=== PATIENT | female | born 1985 | race Caucasian/White ===

== ENCOUNTER → 2023-10-26 13:26 | Outpatient (REF) | payer OTHER, SELFPAY | LOC: PNTC 13:26 | PROVIDERS: ATTENDING PHYSICIAN Obstetrics & Gynecology | DX: O09.529 Supervision of elderly multigravida, unspecified trimester (principal); O45.93 Premature separation of placenta, unspecified, third trimester | CPT/HCPCS: 76815; 76817 ==

== ENCOUNTER → 2023-11-14 10:58 | Outpatient (REF) | payer OTHER, SELFPAY | LOC: PNTC 10:58 | PROVIDERS: ATTENDING PHYSICIAN Obstetrics & Gynecology | DX: O34.40 Maternal care for other abnormalities of cervix, unspecified trimester (principal); Z87.59 Personal history of other complications of pregnancy, childbirth and the puerperium | CPT/HCPCS: 76816 ==

== ENCOUNTER 2023-12-26 15:18 | Inpatient (IN) | payer OTHER, SELFPAY ==
[2023-12-26 15:38] VITALS: BP 172/101; BMI 23.5
[2023-12-26] MEDS: TRANDATE 20 MG IV (15:52)
[2023-12-26] MEDS: MAGNESIUM SULFATE 100 IV (15:54)
[2023-12-26 15:56] LABS: % Basophils 0.7 % (0-2); % Eosinophils 0.4 % (0-6); % Immature Granulocytes 0.4 % (0-0.5); % Lymphocytes 32.5 % (20.5-51.1); Absolute Basophils 0.1 10^3/uL (0-0.2); Absolute Lymphocytes 3.1 10^3/uL (1.2-3.4); Absolute Monocytes 0.7 10^3/uL (0.1-0.6); Absolute Neutrophils 5.6 10^3/uL (1.4-6.5); Hematocrit 42.1 % (37.0-47.0); Hemoglobin 15.5 g/dL (12.0-16.0); Mean Corp Hgb Conc. 36.8 g/dL (33.0-37.0); Mean Corpuscular Volume 89.8 fL (81.0-99.0); Mean Platelet Volume 12.7 fL (7.4-10.4); Nucleated Red Blood Cells % 0 %; Platelet Count 204 10^3/uL (130-400); Red Blood Cell Count 4.69 10^6/uL (4.20-5.40); Red Cell Dist. Width 12.4 % (11.5-14.5); White Blood Cell Count 9.5 10^3/uL (4.8-10.8)
[2023-12-26 16:04] LABS: Urine Albumin 3+ (Neg - Trace); Urine Bilirubin Negative (Negative); Urine Character Clear (Clear); Urine Color Yellow; Urine Glucose Negative (Negative); Urine Ketone Trace (Negative); Urine Leukocyte Trace (Negative); Urine Nitrite Negative (Negative); Urine Occult Blood 3+ (Negative); Urine Urobilinogen Negative (Neg - 1+); Urine pH 6.5 (5.0-9.0)
[2023-12-26 16:08] LABS: ALT (SGPT) 15 U/L (0-35); AST (SGOT) 23 U/L (14-36); Albumin 3.1 g/dl (3.5-5.0); Alkaline Phosphatase 414 U/L (38-126); Blood Urea Nitrogen 12 mg/dl (7-17); Calcium 9.3 mg/dl (8.4-10.2); Carbon Dioxide 22 mmol/L (22-30); Chloride 107 mmol/L (98-107); Estimated Creatinine Clearance 87 ml/min; Glucose 89 mg/dl (70-99); Sodium 131 mmol/L (135-145); Total Bilirubin 0.3 mg/dl (0.2-1.3); Total Protein 5.7 g/dl (6.3-8.2); eGFR > 60.00
[2023-12-26] MEDS: TRANDATE 40 MG IV (16:18)
[2023-12-26] MEDS: MAGNESIUM SULFATE 40 GRAM 1000 IV (16:23)
[2023-12-26] MEDS: TRANDATE 80 MG IV (16:44)
[2023-12-26] MEDS: BICITRA 30 ML PO (16:47)
[2023-12-26] MEDS: TYLENOL 1000 MG PO (16:47)
[2023-12-26] MEDS: LR 1000 IV ×2 (16:48→23:17)
--- NOTE | 2023-12-26 16:53 | CON.NEO ---
Consultation
-
Date/Time Consultation Requested: 12/25 1600
Date/Time Consultation Performed: 12/25 1630
Requesting Provider: dr Blue
Performing Provider: Dr knapp
Reason for Consultation: Pretrm delivery
Consultation - Neonatology
Maternal Labs
Blood Type: O Positive
Antibody Screen: Negative
RPR: Nonreactive
Rubella: Immune
Hep B S Ag: Negative
Hep C: Negative
HIV: Nonreactive
Group B Strep: Unknown
Chlamydia/GC: Negative
Consult
Points discussed at consult:
parents had 32 wk delivery 2 years back with 14 day ICN stay . This was uneventful until today when mom was checked in and noted to have 2 plus protien and elevated BP. admitted given Mag and decision made to section her
for PIH
- Management at delivery including the possibility of CPAP/intubation/surfactant discussed
- Respiratory: RDS possibility with possibility of worsening for 24-48 hrs, management including CPAP/surfactant/ventilator support may be required
- Nutrition: Hypoglycemia, need for IV fluids, gradual feed advance, Gavage feeding, importance of colostrum feeding, initiation of expression of colostrum within 3-4 hours, availability of donor milk, safety fo donor milk etc. were discussed.
- Procedures: Intubation, CPAP, IV placement, blood tests, umbilical arterial or venous lines, gavage feedings were discussed
- CVS: possibility of PDA not discussed in detail at this time
- RADIO INTERFERENCE INVESTIGATOR: Rare possibility of IVH and need for head US, grading of IVH and mcfp effects of Grade III/IV although extremely rare at >32 weeks were discussed
- Jaundice possibility and need for phototherapy discussed
- Family Centered Care: Discussed FCC with emphasis on parental participation during sign off and during management rounds and is encouraged. Availability of gonzalez eyes camera also discussed
-Mom and Dad were given the opportunity to ask questions throughout and open invitation to call if any questions come as they absorb all the information given so far.
Face to Face Time
Total [id number] Time (in Minutes): 30
Attending [facility]: Hannah Knapp MD
[facility]
[2023-12-26 16:57] LABS: Urine Red Blood Cell 21-25 /HPF (0-2); Urine Squamous Cell >30 /LPF (Few); Urine White Cell None Seen /HPF (0-5)
[2023-12-26] MEDS: ANCEF 10 IV (17:00)
[2023-12-26] MEDS: BENADRYL 25 MG IV (18:39)
[2023-12-26 20:30] LABS: % Basophils 0.2 % (0-2); % Eosinophils 0.1 % (0-6); % Immature Granulocytes 0.5 % (0-0.5); % Lymphocytes 9.9 % (20.5-51.1); % Monocytes 1.5 % (1.7-9.3); % Neutrophils 87.8 % (42.2-75.2); Absolute Immature Granulocytes 0.1 10^3/uL (0-0.05); Absolute Lymphocytes 1.7 10^3/uL (1.2-3.4); Absolute Monocytes 0.3 10^3/uL (0.1-0.6); Hematocrit 37.4 % (37.0-47.0); Hemoglobin 13.6 g/dL (12.0-16.0); Mean Corp Hgb Conc. 36.4 g/dL (33.0-37.0); Mean Corpuscular Hgb 32.6 pg (27.0-31.0); Mean Corpuscular Volume 89.7 fL (81.0-99.0); Mean Platelet Volume 12.7 fL (7.4-10.4); Nucleated Red Blood Cells % 0 %; Platelet Count 165 10^3/uL (130-400); Red Blood Cell Count 4.17 10^6/uL (4.20-5.40); Red Cell Dist. Width 12.3 % (11.5-14.5); White Blood Cell Count 17.1 10^3/uL (4.8-10.8)
[2023-12-26 20:41] LABS: Fibrinogen 376 MG/DL (199-459); INR 0.99; PT 12.8 Sec (11.4-14.6)
[2023-12-26 20:46] LABS: ALT (SGPT) 14 U/L (0-35); AST (SGOT) 23 U/L (14-36); Albumin 2.6 g/dl (3.5-5.0); Alkaline Phosphatase 405 U/L (38-126); Blood Urea Nitrogen 12 mg/dl (7-17); Calcium 8.1 mg/dl (8.4-10.2); Carbon Dioxide 21 mmol/L (22-30); Chloride 103 mmol/L (98-107); Estimated Creatinine Clearance 117 ml/min; Glucose 121 mg/dl (70-99); Magnesium 4.7 mg/dl (1.6-2.3); Sodium 129 mmol/L (135-145); Total Bilirubin 0.4 mg/dl (0.2-1.3); Total Protein 4.9 g/dl (6.3-8.2); eGFR > 60.00
[2023-12-26 22:45] LABS: Urine Protein > 2000 mg/dl
[2023-12-26] MEDS: TORADOL 15 MG IV (23:59)
[2023-12-27] MEDS: BENADRYL 25 MG IV (02:04)
[2023-12-27] MEDS: TORADOL 15 MG IV ×3 (06:04→17:35)
[2023-12-27 06:41] LABS: Hematocrit 35.5 % (37.0-47.0); Hemoglobin 12.5 g/dL (12.0-16.0); Mean Corp Hgb Conc. 35.2 g/dL (33.0-37.0); Mean Corpuscular Hgb 32.5 pg (27.0-31.0); Mean Corpuscular Volume 92.2 fL (81.0-99.0); Platelet Count 174 10^3/uL (130-400); Red Blood Cell Count 3.85 10^6/uL (4.20-5.40); Red Cell Dist. Width 12.5 % (11.5-14.5); White Blood Cell Count 23.2 10^3/uL (4.8-10.8)
--- NOTE | 2023-12-27 07:48 | W.PN.ANS.POP ---
Anesthesia Post Operative
- Anesthesia Post Op Note
Vital Signs Stable-See Nursing Note: Yes
Airway Patent: Yes
Adequate Pain Control: Yes
Change in Mental Status: No
Current Postoperative Nausea & Vomiting: No
Anesthesia Complications: No
General Anesthetic Recall: No
Unplanned Admission: No
Post Op Hydration Adequate: Yes (patient on clear liquid diet at this time, tolerating liquids)
[2023-12-27 09:03] LABS: Magnesium 7.9 mg/dl (1.6-2.3)
[2023-12-27] MEDS: MYLICON 80 MG PO ×2 (10:07→14:33)
[2023-12-27] MEDS: PRENATAL PLUS 1 TABLET PO (10:07)
[2023-12-27] MEDS: MAGNESIUM SULFATE 40 GRAM 1000 IV (11:24)
[2023-12-27 14:53] LABS: Syphilis/T. pallidum Ab Reflex Negative (Negative)
[2023-12-27] MEDS: TRANDATE 200 MG PO (18:28)
--- NOTE | 2023-12-28 04:46 | DOWNTIME ---
There was a [employer] Client Collar Separator Downtime on 12/28/2023 from 0100 to 12/28/2023 at 0439. Downtime documentation of patient's care, including medication administrations, has been reconciled in the electronic record per guidelines. Refer to the
patient's paper chart under the miscellaneous tab to see printed paper medication records and downtime forms.
[2023-12-28] MEDS: TRANDATE PO (06:50)
[2023-12-28] MEDS: PRENATAL PLUS 1 TABLET PO (09:13)
[2023-12-28] MEDS: SENOKOT-S 1 TABLET PO (09:13)
[2023-12-28] MEDS: TYLENOL 650 MG PO (09:26)
[2023-12-28] MEDS: MOTRIN 600 MG PO ×3 (09:26→23:55)
[2023-12-28] MEDS: TRANDATE 200 MG PO ×2 (11:59→20:46)
[2023-12-28] MEDS: MYLICON 80 MG PO (21:21)
[2023-12-29] MEDS: PERCOCET 5/325 1 TABLET PO ×3 (04:10→14:03)
[2023-12-29] MEDS: PRENATAL PLUS 1 TABLET PO (07:53)
[2023-12-29] MEDS: TRANDATE 200 MG PO (07:53)
[2023-12-29] MEDS: MOTRIN 600 MG PO (08:10)
== END 2023-12-29 15:02 | disposition home or self-care (01) | DRG 788 ==
LOC: LDRP 15:18
PROVIDERS: Obstetrics & Gynecology; ADMITTING PHYSICIAN Obstetrics & Gynecology
PROC: 10D00Z1 Extraction of Products of Conception, Low, Open Approach (ICD-10-PCS; 2023-12-26)
DX: O14.14 Severe pre-eclampsia complicating childbirth (principal); O60.14X0 Preterm labor third trimester with preterm delivery third trimester, not applicable or unspecified; O34.211 Maternal care for low transverse scar from previous cesarean delivery; O36.5930 Maternal care for other known or suspected poor fetal growth, third trimester, not applicable or unspecified; Z3A.34 34 weeks gestation of pregnancy; Z37.0 Single live birth
CPT/HCPCS: 88307; 80053; 81003; 81015; 82570; 83735; 84156; 84550; 85025; 85027; 85384; 85610; 86780; 86850; 86900; 86901

== ENCOUNTER 2023-12-29 19:00 | Inpatient (IN) | payer OTHER, SELFPAY ==
[2023-12-29 19:12] VITALS: BMI 19.1
[2023-12-29 19:14] VITALS: BP 178/95
[2023-12-29] MEDS: APRESOLINE 10 MG IV (19:37)
[2023-12-29 19:47] LABS: Hematocrit 34.1 % (37.0-47.0); Mean Corp Hgb Conc. 35.2 g/dL (33.0-37.0); Mean Corpuscular Hgb 32.6 pg (27.0-31.0); Mean Corpuscular Volume 92.7 fL (81.0-99.0); Mean Platelet Volume 11.5 fL (7.4-10.4); Platelet Count 150 10^3/uL (130-400); Red Blood Cell Count 3.68 10^6/uL (4.20-5.40); Red Cell Dist. Width 12.8 % (11.5-14.5); White Blood Cell Count 11.9 10^3/uL (4.8-10.8)
[2023-12-29 19:49] LABS: Urine Albumin 2+ (Neg - Trace); Urine Bilirubin Negative (Negative); Urine Character Clear (Clear); Urine Color Straw; Urine Glucose Negative (Negative); Urine Ketone Negative (Negative); Urine Leukocyte Negative (Negative); Urine Nitrite Negative (Negative); Urine Occult Blood 4+ (Negative); Urine Urobilinogen Negative (Neg - 1+)
[2023-12-29 20:05] LABS: ALT (SGPT) 50 U/L (0-35); AST (SGOT) 79 U/L (14-36); Albumin 2.9 g/dl (3.5-5.0); Alkaline Phosphatase 233 U/L (38-126); Blood Urea Nitrogen 15 mg/dl (7-17); Calcium 9.3 mg/dl (8.4-10.2); Carbon Dioxide 24 mmol/L (22-30); Chloride 101 mmol/L (98-107); Estimated Creatinine Clearance 91 ml/min; Glucose 105 mg/dl (70-99); Potassium 4.4 mmol/L (3.5-5.1); Sodium 131 mmol/L (135-145); Total Bilirubin 0.4 mg/dl (0.2-1.3); Total Protein 5.4 g/dl (6.3-8.2); eGFR > 60.00
[2023-12-29 20:06] LABS: Urine Bacteria Few (Negative); Urine Red Blood Cell 50-60 /HPF (0-2); Urine White Cell 0-2 /HPF (0-5)
[2023-12-29] MEDS: MOTRIN 600 MG PO (20:27)
[2023-12-29] MEDS: LR 1000 IV (20:28)
[2023-12-29] MEDS: MAGNESIUM SULFATE 100 IV (20:29)
[2023-12-29] MEDS: MAGNESIUM SULFATE 40 GRAM 1000 IV (20:53)
[2023-12-29] MEDS: TYLENOL 650 MG PO (23:52)
[2023-12-30] MEDS: MOTRIN 600 MG PO ×3 (04:00→20:34)
[2023-12-30 07:14] LABS: Magnesium 6.5 mg/dl (1.6-2.3)
--- NOTE | 2023-12-30 08:15 | CON.CAR ---
Consultation
Consultation Request
Date/Time Consultation Requested: 12/30/2023
Date/Time Consultation Performed: 12/30/2023
Requesting Provider: Dr. Patel
Performing Provider: Dr. Ramos
Reason for Consultation: Hypertensive crisis
Medical History
-
Chief Complaint: Hypertensive crisis
History of Present Illness:
38-year-old female with no significant past medical history who was found to have preeclampsia and underwent on 12/26/2023; the baby is currently in the NICU. The patient states that she felt a little short short of breath prior to
delivering the baby, but that has resolved. After being discharged from the hospital yesterday, her blood pressure was significantly elevated at home, despite taking labetalol; therefore, she presented back to the hospital whereby her blood
pressure has been as high as 183/100 mmHg. She currently has a mild headache, but denies any chest pain or shortness of breath. Her , Tito, is currently at bedside.
Past Medical History
Past Medical History: None
Past Surgical History: (2021), Gynecological (D&C in 2017) and Other (Breast augmentation in 2008)
Social History
Tobacco: Non-Smoker
Alcohol: None
Drug: None
Personal:
Living: With Family
Employment: Employed
Family History
Family History: Reviewed & Not Pertinent
Allergies / Home Medications
Allergy/AdvReac Type Severity Reaction Status Date / Time
No Known Allergies Allergy Verified 12/29/23 19:12
�Medication �Instructions �Recorded �Confirmed �Type
vit no.95-ferrous 1 1 each PO DAILY Supplement 12/12/21 12/29/23 History
fumarate 28 mg-folic acid 800 mcg
tablet ()
acetaminophen 325 mg tablet 650 mg (2 x 325 mg) PO Q4HPRN PRN 12/28/23 12/29/23 Rx
mild pain #0 tabs
ibuprofen 600 mg tablet 600 mg PO Q6HPRN PRN cramps #0 tabs 12/28/23 12/29/23 Rx
labetalol 200 mg tablet 200 mg PO TID Blood pressure #84 12/29/23 12/29/23 Rx
tabs
oxycodone 5 mg tablet 5 mg PO Q6H PRN severe pain #10 12/29/23 12/29/23 Rx
tabs
Review of Systems
-
History Source: Patient
All other systems: Negative unless noted
Physical Exam
Vital Signs
Temp Pulse Resp BP
98.1 F 72 18 183/100
12/29/23 19:14 12/29/23 19:37 12/29/23 19:14 12/29/23 19:37
Lab Results
12/29/23 19:33
12/29/23 20:47
Physical Exam
General: No Apparent Distress and Comfortable
HEENT: Normocephalic
Respiratory: Clear
Cardiac: S1/S2 and Regular Rhythm
Breast: Deferred by me
GI: Soft
Rectal: Deferred by Provider
Musculoskeletal: Edema (Trace)
Skin: Warm and Dry
Neuro: AO x 3
Hematologic/Lymphatic: No Lymphadenopathy
Psych: Calm
Impression / Plan
-
38-year-old female with no significant past medical history who was found to have preeclampsia and underwent on 12/26/2023; the baby is currently in the NICU. The patient states that she felt a little short short of breath prior to
delivering the baby, but that has resolved. After being discharged from the hospital yesterday, her blood pressure was significantly elevated at home, despite taking labetalol; therefore, she presented back to the hospital whereby her blood
pressure has been as high as 183/100 mmHg. She currently has a mild headache, but denies any chest pain or shortness of breath. Cardiology was consulted for management of uncontrolled hypertension.
Hypertensive crisis/preeclampsia status-post /:
-The patient is currently on magnesium sulfate, which is scheduled to be discontinued within the next hour.
-Will place the patient on labetalol 400 mg twice daily and hydralazine 25 mg twice daily; can adjust as needed.
-Will obtain an echocardiogram today to thoroughly assess cardiac function.
-Continue to monitor blood pressure throughout the day.
Data Reviewed
-
Labs: Labs Reviewed by me
[2023-12-30] MEDS: APRESOLINE 20 MG PO (08:33)
[2023-12-30] MEDS: TRANDATE 400 MG PO ×2 (08:33→20:18)
[2023-12-30] MEDS: ROXICODONE 5 MG PO ×2 (09:31→20:34)
[2023-12-30] MEDS: LR IV (10:21)
[2023-12-30] MEDS: APRESOLINE 10 MG IV (12:59)
[2023-12-30] MEDS: TYLENOL 650 MG PO (15:40)
[2023-12-30] MEDS: APRESOLINE 50 MG PO ×2 (17:15→22:34)
[2023-12-30] MEDS: SENOKOT-S 1 TABLET PO (20:34)
[2023-12-31] MEDS: APRESOLINE 50 MG PO ×3 (07:35→22:32)
[2023-12-31] MEDS: SENOKOT-S 1 TABLET PO (07:37)
[2023-12-31] MEDS: TRANDATE 400 MG PO ×2 (07:46→20:19)
[2023-12-31] MEDS: MOTRIN 600 MG PO ×2 (08:09→20:26)
--- NOTE | 2023-12-31 16:31 | W.PN.CD ---
Today's Communication / Plan
-
-Reviewed issues with patient as well as with Dr. Chou
-Continue current treatment with labetalol and hydralazine but can give additional hydralazine 25 mg p.o. as needed for systolic blood pressure greater than 140 or diastolic greater than 90
-Patient will be observed today and reassess tomorrow
Impression / Plan
-
38-year-old female with no significant past medical history who was found to have preeclampsia and underwent on 12/26/2023; the baby is currently in the NICU. The patient states that she felt a little short short of breath prior to
delivering the baby, but that has resolved. After being discharged from the hospital yesterday, her blood pressure was significantly elevated at home, despite taking labetalol; therefore, she presented back to the hospital whereby her blood
pressure has been as high as 183/100 mmHg. She currently has a mild headache, but denies any chest pain or shortness of breath. Cardiology was consulted for management of uncontrolled hypertension.
Hypertensive crisis/preeclampsia status-post /:
-Patient comfortable and asymptomatic. Blood pressure control has improved but still having some fluctuations in blood pressure. Patient now off magnesium. Some of fluctuations may be related to twice daily dosing of hydralazine rather than 3
times daily.
-Reviewed issues with patient as well as with Dr. Chou
-Continue current treatment with labetalol and hydralazine but can give additional hydralazine 25 mg p.o. as needed for systolic blood pressure greater than 140 or diastolic greater than 90
-Patient will be observed today and reassess tomorrow
Physical Exam
Vital Signs/Labs
Vital Signs
Temp Pulse Resp BP
98.1 F 80 18 149/99
12/29/23 19:14 12/31/23 15:38 12/29/23 19:14 12/31/23 15:38
12/30/23 12/31/23 01/01/24
06:59 06:59 06:59
Actual Weight 52.163 kg
12/29/23 19:33
12/29/23 20:47
Magnesium 6.5 mg/dl (1.6-2.3) H* 12/30/23 06:21
Physical Exam
Constitutional: No acute distress
Cardiovascular: Rhythm & rate is regular
Respiratory: Respiratory effort normal
GI: Soft
Other: Other
Data Reviewed
-
Date of Service: December 31, 2023
[2023-12-31] MEDS: APRESOLINE 25 MG PO (18:06)
[2023-12-31] MEDS: ROXICODONE 5 MG PO (22:07)
[2023-12-31] MEDS: SENOKOT-S PO (22:07)
[2024-01-01] MEDS: TRANDATE 400 MG PO ×2 (07:48→20:10)
[2024-01-01] MEDS: SENOKOT-S 1 TABLET PO (07:48)
[2024-01-01] MEDS: APRESOLINE 50 MG PO (07:49)
[2024-01-01] MEDS: APRESOLINE 25 MG PO ×3 (09:38→22:22)
[2024-01-01] MEDS: ROXICODONE 5 MG PO ×3 (09:39→23:30)
--- NOTE | 2024-01-01 13:28 | W.PN.CD ---
Today's Communication / Plan
-
Issues as outlined. Please see note
Impression / Plan
-
38-year-old female with no significant past medical history who was found to have preeclampsia and underwent on 12/26/2023; the baby is currently in the NICU. The patient states that she felt a little short short of breath prior to
delivering the baby, but that has resolved. After being discharged from the hospital yesterday, her blood pressure was significantly elevated at home, despite taking labetalol; therefore, she presented back to the hospital whereby her blood
pressure has been as high as 183/100 mmHg. She currently has a mild headache, but denies any chest pain or shortness of breath. Cardiology was consulted for management of uncontrolled hypertension.
Hypertensive crisis/preeclampsia status-post /:
-Patient comfortable and asymptomatic. She has been receiving her labetalol and also between having hydralazine 50 mg 3 times daily and as needed hydralazine she has had basically the equivalent of 75 mg 3 times daily. Reviewed issues with nursing
and additional discussions with Dr. Chou who had brought up use of Procardia XL which her team also commonly uses in post patients.. Initially there was a question of whether the patient was going to breast-feed but the patient is not
going to breast-feed. This also adds flexibility to medication options. In order to try and simplify her regimen and have more effective control of her blood pressure we will proceed as follows
-Continue labetalol at current dosing
-Add Procardia XL
-Will reduce hydralazine and continue to use additional hydralazine as needed for higher pressures.
-Reviewed issues with patient as well as with Dr. Chou
-Patient will be observed today and reassess tomorrow
Physical Exam
Vital Signs/Labs
Vital Signs
Temp Pulse Resp BP
98.1 F 86 18 145/95
12/29/23 19:14 01/01/24 09:38 12/29/23 19:14 01/01/24 09:38
12/29/23 19:33
12/29/23 20:47
Magnesium 6.5 mg/dl (1.6-2.3) H* 12/30/23 06:21
Physical Exam
Constitutional: No acute distress
Cardiovascular: Rhythm & rate is regular
Respiratory: Respiratory effort normal
GI: Soft
Neuro/Psych: Alert
Data Reviewed
-
Date of Service: January 01, 2024
Medical Decision Making: Reviewed Test Results
Echo: Report Reviewed by me
Medical Tests (PFT, Pathology etc): Report Reviewed by me
Labs: Labs Reviewed by me
[2024-01-01] MEDS: PROCARDIA XL (EXTENDED RELEASE) 30 MG PO (13:39)
[2024-01-01] MEDS: SENOKOT-S PO (20:10)
[2024-01-01] MEDS: MOTRIN 600 MG PO (23:38)
--- NOTE | 2024-01-02 07:14 | W.PN.CD ---
Addendum entered and electronically signed by Claude Cook MD 01/02/24 07:24:
foolow up in our offiice in a week
Addendum entered and electronically signed by Claude Cook MD 01/02/24 07:21:
Note all treatment issues below have been discussed with Dr. Chou
Original Note:
Today's Communication / Plan
-
Continue labetalol at current dosing
Continue Procardia XL 30 mg a day
Preferred to used Tylenol for headache rather than NSAID. But if Tylenol not adequate then NSAID can be added.
Hold hydralazine this morning as we reassess blood pressures after morning labetalol.
Based on blood pressures this morning and the patient feeling well I suspect she would be stable for discharge this afternoon.
Impression / Plan
-
38-year-old female with no significant past medical history who was found to have preeclampsia and underwent on 12/26/2023; the baby is currently in the NICU. The patient states that she felt a little short short of breath prior to
delivering the baby, but that has resolved. After being discharged from the hospital yesterday, her blood pressure was significantly elevated at home, despite taking labetalol; therefore, she presented back to the hospital whereby her blood
pressure has been as high as 183/100 mmHg. She currently has a mild headache, but denies any chest pain or shortness of breath. Cardiology was consulted for management of uncontrolled hypertension.
Hypertensive crisis/preeclampsia status-post /:
-Patient comfortable and asymptomatic. She has been receiving her labetalol and hydralazine. Yesterday despite titration of hydralazine patient still seem to have a significant component of hypertension. Based on that some adjustments in her
medications were made Procardia XL 30 mg was added and dosing of hydralazine was decreased. Patient had a headache last night but states that she thought she was having a headache before her Procardia was given. Possible that Procardia could have
added to headache but patient feels fine this morning with no symptoms blood pressure control has improved
-Continue labetalol at current dosing
- Procardia XL 30 mg a day.
-Hold morning hydralazine and assess pressures. If they remain high then can resume hydralazine 25 mg 3 times daily otherwise we may see how her blood pressures are with both labetalol and Procardia.
-We discussed monitoring for lower blood pressures at home which would prompt cutting back on medications.
Physical Exam
Vital Signs/Labs
Vital Signs
Temp Pulse Resp BP
98.1 F 84 18 133/94
12/29/23 19:14 01/01/24 22:22 12/29/23 19:14 01/01/24 22:22
12/29/23 19:33
12/29/23 20:47
Magnesium 6.5 mg/dl (1.6-2.3) H* 12/30/23 06:21
Physical Exam
Constitutional: No acute distress
Cardiovascular: Rhythm & rate is regular
Respiratory: Lungs clear to auscul.
Neuro/Psych: Alert
Data Reviewed
-
Date of Service: January 02, 2024
[2024-01-02] MEDS: TRANDATE 400 MG PO (08:24)
[2024-01-02] MEDS: SENOKOT-S 1 TABLET PO (08:24)
[2024-01-02] MEDS: PROCARDIA XL (EXTENDED RELEASE) 30 MG PO (11:15)
== END 2024-01-02 14:56 | disposition home or self-care (01) | DRG 776 ==
LOC: LDRP 19:00
PROVIDERS: ADMITTING PHYSICIAN Obstetrics & Gynecology; OTHER PHYSICIAN Internal Medicine
DX: O14.15 Severe pre-eclampsia, complicating the puerperium (principal); I16.9 Hypertensive crisis, unspecified
CPT/HCPCS: 80053; 81003; 81015; 83735; 85027; 93306